=== PATIENT | male | born 1975 | race Hispanic/Latino ===

== ENCOUNTER 2020-01-14 09:23 | Emergency (ER) | payer SELFPAY ==
[~2020-01-14] VITALS: Ht 165.1 cm; Wt 74.8 kg
[2020-01-14] MEDS ORDERED: ADVIL200 MG PO (09:46)
== END 2020-01-14 11:12 | disposition home or self-care (01) ==
LOC: ED 09:23
DX: S43.402A Unspecified sprain of left shoulder joint, initial encounter (principal); V49.9XXA Car occupant (driver) (passenger) injured in unspecified traffic accident, initial encounter
CPT/HCPCS: 73030; 99283-25